=== PATIENT | male | born 1960 | race Caucasian/White ===

== ENCOUNTER 2020-06-09 14:15 | Emergency (ER) | payer BC ==
[~2020-06-09] VITALS: Ht 172.7 cm; Wt 90.7 kg
[2020-06-09] MEDS ORDERED: HYDROCHLOROTHIA25 M2 PO (14:25)
[2020-06-09] MEDS ORDERED: COZAAR 25 MG TA25 M1 PO (14:25)
[2020-06-09] MEDS ORDERED: LOSARTAN-HCTZ1 EAC3 PO (14:25)
[2020-06-09 14:42] LABS: ABSOLUTE LYMPHOCYTES 0.6 thou/uL (0.8-5.3); ABSOLUTE MONOCYTES 0.5 thou/uL (0.0-1.2); ABSOLUTE NEUTROPHILS 4.3 thou/uL (1.6-8.1); BASOPHILS 0.3 %; HEMATOCRIT 41.9 % (42.0-52.0); HEMOGLOBIN 14.3 gm/dL (14.0-18.0); LYMPHOCYTES 10.8 %; MCH 30.7 pg (26.0-34.0); MCHC 34.2 g/dL (28.0-37.0); MCV 89.8 fL (80.0-100.0); MONOCYTES 9.9 %; MPV 7.7 fl. (7.2-11.1); NUCLEATED RBCS 0 /100WBC; PLATELET COUNT* 197 thou/uL (150-400); RBC 4.66 mil/uL (4.50-6.00); WBC 5.4 thou/uL (4.0-11.0)
[2020-06-09 14:50] LABS: CALCIUM 8.2 mg/dL (8.5-10.1); CREATININE 1.3 mg/dL (0.6-1.3); POTASSIUM 4.3 mmol/L (3.5-5.1)
[2020-06-09 14:52] LABS: APTT 30.5 Seconds (25.0-31.3); PROTIME 10.4 Seconds (9.20-11.50)
[2020-06-09 15:00] LABS: ALBUMIN 3.5 g/dL (3.4-5.0); TOTAL BILIRUBIN 0.5 mg/dL (<0.1-1.0); TOTAL PROTEIN 7.9 g/dL (6.4-8.2)
[2020-06-09] MEDS ORDERED: ZOFRAN ODT4 MG PO (15:42)
[2020-06-09] MEDS ORDERED: PREDNISONE 20 M20 MG PO (15:42)
[2020-06-09] MEDS ORDERED: VENTOLIN HFA 1818 GM INH (15:42)
[2020-06-09] MEDS ORDERED: ZPAK PO (15:42)
[2020-06-09 16:30] VITALS: BP 144/76
--- NOTE | 2020-06-10 09:55 | EKG ---
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: [facility] : 1960 Requested By: Jeffery Lopez Order Number: [id number] MD: Maximino Dominguez Measurements Intervals Mary D Rate: 92 P: -42 WV: 145 QRS: -12 QRSD: 79 T: 26 QT: 339 QTc: 420 Interpretive Statements Sinus rhythm Atrial premature complex Probable septal infarct, old No previous ECG available for comparison Electronically Signed On 06-10-2020 9:55:17 [employer] by Maximino Dominguez [email or web address] <ELECTRONICALLY SIGNED> By: Maximino Dominguez MD, [facility] 06/10/20 0955 1449 1449 Maximino Dominguez MD, [facility] /EPI
== END 2020-06-09 16:44 | disposition home or self-care (01) ==
LOC: M.ERS 14:15
PROVIDERS: Family Medicine
DX: U07.1 COVID-19 (principal); I10 Essential (primary) hypertension; Z79.899 Other long term (current) drug therapy